=== PATIENT | male | born 1930 | race Caucasian/White ===

== ENCOUNTER 2018-02-19 22:53 | Emergency (ER) | payer MEDICARE, MEDICAID ==
[~2018-02-19] VITALS: Ht 152.4 cm; Wt 55.3 kg
[2018-02-19 23:01] VITALS: BP_SYST 102; BP_SYST 82
[2018-02-20] MEDS ORDERED: MORPHINE SULFATE 10 MG/5 ML ORAL SOL. UDC PO ONE
[2018-02-20 01:55] VITALS: BP_SYST 112
== END 2018-02-20 01:55 | disposition home or self-care (01) ==
LOC: SED 22:53
DX: R33.9 Retention of urine, unspecified (principal)
CPT/HCPCS: 99284